=== PATIENT | male | born 1955 | race American Indian/Alaskan Native ===

== ENCOUNTER 2017-04-04 16:42 | Emergency (ER) | payer BC, OTHER ==
[2017-04-04 17:56] LABS: Hematocrit 37.2 % (35.5-45.6); Hemoglobin 11.8 gm/dl (11.8-15.2); Mean Corpuscular HGB Conc 32 % (32-34); Mean Corpuscular Volume 80 fl (84-94); Platelet Count 357 K/mm3 (140-440); Red Blood Count 4.67 M/mm3 (3.65-5.03); Red Cell Distribution Width 17.4 % (13.2-15.2)
[2017-04-04 18:01] LABS: Mean Corpuscular Hemoglobin 25 pg (28-32)
[2017-04-04 18:06] LABS: INR 1.53 (0.87-1.13)
[2017-04-04 18:07] LABS: Partial Thromboplastin Time 38.8 Sec. (24.2-36.6)
[2017-04-04 18:10] LABS: Anion Gap -2 mmol/L; BUN/Creatinine Ratio 16.36; Blood Urea Nitrogen 18 mg/dL (9-20); Calcium 9.6 mg/dL (8.4-10.2); Carbon Dioxide 24 mmol/L (22-30); Chloride 109.2 mmol/L (98-107); Glucose 139 mg/dL (75-100); Potassium 4.8 mmol/L (3.6-5.0); Sodium 126 mmol/L (137-145)
--- NOTE | 2017-04-04 20:58 | Emergency Department Report ---
ED Extremity Problem HPI - General Chief complaint: Extremity Injury, Lower Stated complaint: Bilat Leg Pain Time Seen by Provider: 04/04/17 20:52 Source: patient Mode of arrival: Wheelchair Limitations: No Limitations - History of Present Illness Initial comments: Patient reports bilateral lower extremity pain, worse on the right that started five days ago after eating several meals of fried foods. He attributes the pain to a gout flare-up which he takes Colcry, however symptoms continue to persist. MD Complaint: extremity pain, extremity swelling Onset/Timin -: days(s) Location: right, lower extremity, bilateral lower extremity History of Same: Yes -: Yes myalgia, No associated chest pain Radiation: distal Severity scale (0 -10): 10 Quality: aching, constant Consistency: constant Improves with: nothing Worsens with: weight bearing, walking Associated Symptoms: denies other symptoms. denies: chest pain, shortness of breath, fever, myalgias, arthralgias, rash - Related Data Previous Rx's Medication Instructions Recorded Last Taken Type Enoxaparin [Lovenox] 30 mg SQ Q12HR #4 syringe 04/04/17 Unknown Rx Enoxaparin [Lovenox] 80 mg SQ Q12HR #4 syringe 04/04/17 Unknown Rx Indomethacin 50 mg PO Q8H #15 capsule 04/04/17 Unknown Rx Allergies Allergy/AdvReac Type Severity Reaction Status Date / Time No Known Allergies Allergy Unverified 04/04/17 17:33 ED Review of Systems ROS: Stated complaint: Bilat Leg Pain Other details as noted in HPI Constitutional: denies: chills, fever, weakness Respiratory: denies: cough, orthopnea, shortness of breath, SOB with exertion, SOB at rest, stridor, wheezing Cardiovascular: denies: chest pain, palpitations, dyspnea on exertion, orthopnea , edema, syncope, paroxysmal nocturnal dyspnea Gastrointestinal: denies: abdominal pain, nausea, vomiting, diarrhea, constipation Genitourinary: denies: urgency, dysuria, frequency, hematuria Musculoskeletal: arthralgia (bilateral lower extremities, severe on the right lower extremity). denies: back pain, joint swelling, myalgia Skin: denies: rash, lesions Neurological: denies: headache, weakness, numbness, paresthesias, confusion, abnormal gait, vertigo Psychiatric: denies: anxiety, depression Hematological/Lymphatic: denies: easy bleeding, easy bruising, swollen glands ED Past Medical Hx - Past Medical History Hx Hypertension: Yes Additional medical history: gout,AFIB - Social History Smoking Status: Never Smoker Substance Use Type: None - Medications Home Medications: Home Medications Medication Instructions Recorded Confirmed Last Taken Type Enoxaparin [Lovenox] 30 mg SQ Q12HR #4 syringe 04/04/17 Unknown Rx Enoxaparin [Lovenox] 80 mg SQ Q12HR #4 syringe 04/04/17 Unknown Rx Indomethacin 50 mg PO Q8H #15 capsule 04/04/17 Unknown Rx ED Physical Exam - General Limitations: No Limitations General appearance: alert, in no apparent distress - Head Head exam: Present: atraumatic, normal inspection - Eye Eye exam: Present: normal appearance - ENT ENT exam: Present: normal exam, normal orophraynx, mucous membranes moist. Absent: mucous membranes dry - Neck Neck exam: Present: normal inspection, full ROM. Absent: tenderness, meningismus, lymphadenopathy, thyromegaly - Respiratory Respiratory exam: Present: normal lung sounds bilaterally. Absent: respiratory distress, wheezes, rales, rhonchi, stridor, chest wall tenderness, accessory muscle use, decreased breath sounds, prolonged expiratory - Cardiovascular Cardiovascular Exam: Present: tachycardia, normal heart sounds. Absent: normal rhythm, bradycardia, irregular rhythm, systolic murmur, diastolic murmur, rubs, gallop - GI/Abdominal GI/Abdominal exam: Present: soft, distended, normal bowel sounds. Absent: tenderness, guarding, rebound, rigid - Extremities Exam Extremities exam: Present: normal inspection, full ROM, normal capillary refill. Absent: tenderness - Expanded Lower Extremity Exam Left Hip exam: Present: normal inspection, full ROM, pelvic stability Lower Leg exam: Present: normal inspection, full ROM. Absent: tenderness, swelling, abrasion, laceration, ecchymosis, deformity, crepidus, dislocation, erythema, palpable cord, Dacia's sign Ankle exam: Present: normal inspection, full ROM Foot/Toe exam: Present: normal inspection, full ROM Neuro vascular tendon exam: Present: no vascular compromise. Absent: pulse deficit, abnormal cap refill, motor deficit, sensory deficit, tendon deficit, extremity cold to touch, pallor, abnormal 2-point discrimination, decreased fine /light touch, foot drop, peroneal nerve deficit, significant pain with passive ROM of distal joint Gait: Positive: antalgic (patient ambulates with a walker) Right Hip exam: Present: normal inspection, full ROM, pelvic stability Lower Leg exam: Present: normal inspection, full ROM, tenderness, swelling. Absent: abrasion, laceration, ecchymosis, deformity, crepidus, dislocation, erythema, palpable cord, Dacia's sign Ankle exam: Present: normal inspection, full ROM, tenderness. Absent: swelling , abrasion, laceration, ecchymosis, deformity, crepidus, dislocation, erythema, anterior draw sign Foot/Toe exam: Present: normal inspection, full ROM. Absent: tenderness Neuro vascular tendon exam: Present: no vascular compromise. Absent: pulse deficit, abnormal cap refill, motor deficit, sensory deficit, tendon deficit, extremity cold to touch, pallor, abnormal 2-point discrimination, decreased fine /light touch, foot drop, peroneal nerve deficit, significant pain with passive ROM of distal joint Gait: Positive: antalgic (ambulates with a walker) - Back Exam Back exam: Present: normal inspection, full ROM. Absent: tenderness - Neurological Exam Neurological exam: Present: alert, oriented X3, CN II-XII intact, normal gait ( ambulates with a walker), reflexes normal. Absent: motor sensory deficit - Psychiatric Psychiatric exam: Present: normal affect, normal mood. Absent: depressed, agitated - Skin Skin exam: Present: warm, dry, intact, normal color. Absent: rash ED Course Vital Signs 04/04/17 17:29 Temperature 98.3 F Pulse Rate 108 H Respiratory 18 Rate Blood Pressure 133/98 O2 Sat by Pulse 100 Oximetry - Reevaluation(s) Reevaluation #1: 04/04/17 21:15 pain medication, laboratory and radiology studies ordered Reevaluation #2: 04/04/17 22:36 Lovenox and EKG ordered Reevaluation #3: 04/04/17 23:03 Patient received a hard script for outpatient INR recheck in 2-3 days ED Medical Decision Making - Lab Data Result diagrams: 04/04/17 17:39 04/04/17 17:39 Lab Results 04/04/17 04/04/17 04/04/17 Range/Units 17:39 17:39 17:39 WBC 15.0 H (4.5-11.0) K/mm3 RBC 4.67 (3.65-5.03) M/mm3 Hgb 11.8 (11.8-15.2) gm/dl Hct 37.2 (35.5-45.6) % MCV 80 L (84-94) fl MCH 25 L (28-32) pg MCHC 32 (32-34) % RDW 17.4 H (13.2-15.2) % Plt Count 357 (140-440) K/mm3 PT 18.4 H (12.2-14.9) Sec. INR 1.53 H (0.87-1.13) APTT 38.8 H (24.2-36.6) Sec. Sodium 126 L (137-145) mmol/L Potassium 4.8 (3.6-5.0) mmol/L Chloride 109.2 H (98-107) mmol/L Carbon Dioxide 24 (22-30) mmol/L Anion Gap -2 mmol/L BUN 18 (9-20) mg/dL Creatinine 1.1 (0.8-1.5) mg/dL Estimated GFR > 60 ml/min BUN/Creatinine Ratio 16.36 % Glucose 139 H (75-100) mg/dL Calcium 9.6 (8.4-10.2) mg/dL Urine Color (Yellow) Urine Turbidity (Clear) Urine pH (5.0-7.0) Ur Specific [place] (1.003-1.030) Urine Protein (Negative) mg/dL Urine Glucose (UA) (Negative) mg/dL Urine Ketones (Negative) mg/dL Urine Blood (Negative) Urine Nitrite (Negative) Urine Bilirubin (Negative) Urine Urobilinogen (<2.0) mg/dL Ur Leukocyte Esterase (Negative) Urine WBC (Auto) (0.0-6.0) /HPF Urine RBC (Auto) (0.0-6.0) /HPF Urine Mucus /HPF 04/04/17 Range/Units 20:39 WBC (4.5-11.0) K/mm3 RBC (3.65-5.03) M/mm3 Hgb (11.8-15.2) gm/dl Hct (35.5-45.6) % MCV (84-94) fl MCH (28-32) pg MCHC (32-34) % RDW (13.2-15.2) % Plt Count (140-440) K/mm3 PT (12.2-14.9) Sec. INR (0.87-1.13) APTT (24.2-36.6) Sec. Sodium (137-145) mmol/L Potassium (3.6-5.0) mmol/L Chloride (98-107) mmol/L Carbon Dioxide (22-30) mmol/L Anion Gap mmol/L BUN (9-20) mg/dL Creatinine (0.8-1.5) mg/dL Estimated GFR ml/min BUN/Creatinine Ratio % Glucose (75-100) mg/dL Calcium (8.4-10.2) mg/dL Urine Color Yellow (Yellow) Urine Turbidity Clear (Clear) Urine pH 6.0 (5.0-7.0) Ur Specific [place] 1.013 (1.003-1.030) Urine Protein <15 mg/dl (Negative) mg/dL Urine Glucose (UA) Neg (Negative) mg/dL Urine Ketones Tr (Negative) mg/dL Urine Blood Neg (Negative) Urine Nitrite Neg (Negative) Urine Bilirubin Neg (Negative) Urine Urobilinogen < 2.0 (<2.0) mg/dL Ur Leukocyte Esterase Neg (Negative) Urine WBC (Auto) 2.0 (0.0-6.0) /HPF Urine RBC (Auto) 2.0 (0.0-6.0) /HPF Urine Mucus Few /HPF - Differential Diagnosis Right Leg Gout Pain, DVT, A-Fib Critical care attestation.: If time is entered above; I have spent that time in minutes in the direct care of this critically ill patient, excluding procedure time. ED Disposition Clinical Impression: Gout attack Qualifiers: Gout site: unspecified site Gout etiology: unspecified cause Qualified Code(s) : M10.9 - Gout, unspecified DVT (deep venous thrombosis) Qualifiers: DVT location: lower extremity Laterality: right Chronicity: acute Atrial fibrillation Qualifiers: Atrial fibrillation type: chronic Qualified Code(s): I48.2 - Chronic atrial fibrillation Disposition: DISCHARGED TO HOME OR SELFCARE Is pt being admited?: No Does the pt Need Aspirin: No Condition: Stable Instructions: Acute Gouty Arthritis (ED), Deep Venous Thrombosis (ED), Atrial Fibrillation (ED) Additional Instructions: Take medication as directed. Follow up with outpatient tomorrow for venous doppler study of right leg. Follow up in the lab in 2-3 days for INR recheck. Keep and maintain all appointments Prescriptions: Enoxaparin [Lovenox] 30 mg SQ Q12HR #4 syringe Enoxaparin [Lovenox] 80 mg SQ Q12HR #4 syringe Indomethacin 50 mg PO Q8H #15 capsule Referrals: PRIMARY CARE, [Primary Care Provider] - 3-5 Days KIMMY EDYD MD [Staff Physician] - 3-5 Days CLARA STOVALL MD [Staff Physician] - 3-5 Days Time of Disposition: 22:50
[2017-04-04 21:02] LABS: Bilirubin,Urine NEG (Negative); Blood,Urine NEG (Negative); Ketones,Urine TR mg/dL (Negative); Leukocyte Esterase,Urine NEG (Negative); Mucus,Urine FEW /HPF; Nitrite,Urine NEG (Negative); Protein,Urine <15 mg/dL mg/dL (Negative); Urobilinogen,Urine < 2.0 mg/dL (<2.0)
[2017-04-04] MEDS ORDERED: TORADOL IM ONE (21:04)
[2017-04-04] MEDS ORDERED: LOVENOX SUB-Q ONE ×2 (22:34→22:49)
[2017-04-04 22:44] VITALS: BP 128/87
== END 2017-04-04 23:38 | disposition home or self-care (01) ==
LOC: ED 16:42
DX: M10.9 Gout, unspecified (principal); I48.2 Chronic atrial fibrillation; I82.401 Acute embolism and thrombosis of unspecified deep veins of right lower extremity; I10 Essential (primary) hypertension; I48.91 Unspecified atrial fibrillation
CPT/HCPCS: 36415; 80048; 81001; 85027; 85610; 85730; 93005; 93010; 96372; 99283; J1650; J1885

== ENCOUNTER 2017-04-05 08:54 | Outpatient (CLI) | payer OTHER, BC ==
--- NOTE | 2017-04-07 07:36 | Vascular Lab Report ---
Right Lower Extremity Venous Duplex Study: Reason for Exam: Pain of the right lower extremity. Comments on the Right: All veins visualized are freely compressible without evidence of internal echogenicity. Flow is spontaneous and phasic throughout. No evidence of acute or chronic thrombus is seen in any of the vessels visualized. Soft tissue density in the right leg is consistent with knee effusion. Comments on the Left: A limited duplex study was done of the proximal veins of the left lower extremity. All veins visualized are freely compressible without evidence of internal echogenicity. Flow is spontaneous and phasic throughout. No evidence of acute or chronic thrombus is seen in any of the vessels visualized. Impression: No evidence of acute or chronic deep venous thrombosis in the right lower extremity.
== END 2017-04-05 08:55 | disposition home or self-care (01) ==
LOC: VAS 08:54
PROVIDERS: ATTEND Nurse Practitioner Family
DX: M79.604 Pain in right leg (principal)

== ENCOUNTER 2021-04-16 12:59 | Emergency (ER) | payer BC, MEDICARE, OTHER ==
[2021-04-16 13:37] VITALS: BP 164/92
--- NOTE | 2021-04-16 13:57 | Emergency Department Report ---
ED Male HPI - General Chief complaint: Urogenital-Male Stated complaint: CANT USE THE RESTROOM Time Seen by Provider: 04/16/21 13:51 Source: patient Mode of arrival: Wheelchair Limitations: No Limitations - History of Present Illness Initial comments: Patient is a 65-year-old male who presents emergency room with complaints of urinary retention since 7:00 last night. Patient states that this has occurred once in the past and he had to have a catheter placed. He states that his urologist is Dr. Hernández. He states he has a history of BPH. He states he has pressure in his lower abdomen secondary to not being able to urinate. He denies any back pain, fever, nausea, vomiting, diarrhea, any other symptoms. Past medical history of gout, hypertension, A. fib. No allergies to medications. - Related Data Previous Rx's Medication Instructions Recorded Last Taken Type Enoxaparin [Lovenox] 30 mg SQ Q12HR #4 syringe 04/04/17 Unknown Rx Enoxaparin [Lovenox] 80 mg SQ Q12HR #4 syringe 04/04/17 Unknown Rx Indomethacin 50 mg PO Q8H #15 capsule 04/04/17 Unknown Rx Allergies Allergy/AdvReac Type Severity Reaction Status Date / Time No Known Allergies Allergy Verified 04/16/21 13:31 ED Review of Systems ROS: Stated complaint: CANT USE THE RESTROOM Other details as noted in HPI Comment: All other systems reviewed and negative ED Past Medical Hx - Past Medical History Hx Hypertension: Yes Additional medical history: gout,AFIB/ PROSTRATE - Surgical History Past Surgical History?: No - Social History Smoking Status: Never Smoker Substance Use Type: None - Medications Home Medications: Home Medications Medication Instructions Recorded Confirmed Last Taken Type Enoxaparin [Lovenox] 30 mg SQ Q12HR #4 syringe 04/04/17 Unknown Rx Enoxaparin [Lovenox] 80 mg SQ Q12HR #4 syringe 04/04/17 Unknown Rx Indomethacin 50 mg PO Q8H #15 capsule 04/04/17 Unknown Rx ED Physical Exam - General Limitations: No Limitations General appearance: alert, in no apparent distress - Head Head exam: Present: atraumatic, normocephalic - Eye Eye exam: Present: normal appearance - ENT ENT exam: Present: mucous membranes moist - Respiratory Respiratory exam: Present: normal lung sounds bilaterally. Absent: respiratory distress, wheezes, rales, rhonchi, stridor, chest wall tenderness, accessory muscle use, decreased breath sounds, prolonged expiratory - Cardiovascular Cardiovascular Exam: Present: regular rate, normal rhythm, normal heart sounds. Absent: systolic murmur, diastolic murmur, rubs, gallop - GI/Abdominal GI/Abdominal exam: Present: soft, normal bowel sounds. Absent: distended, tenderness, guarding, rebound, rigid - Back Exam Back exam: Absent: CVA tenderness (R), CVA tenderness (L) - Neurological Exam Neurological exam: Present: alert, oriented X3 - Psychiatric Psychiatric exam: Present: normal affect, normal mood - Skin Skin exam: Present: warm, dry, intact ED Course Vital Signs 04/16/21 13:36 Temperature 98.9 F Pulse Rate 79 Respiratory 20 Rate Blood Pressure 164/92 O2 Sat by Pulse 100 Oximetry ED Medical Decision Making - Lab Data Result diagrams: 04/16/21 14:06 04/16/21 14:06 Labs 04/16/21 04/16/21 04/16/21 14:06 14:06 Unknown WBC 11.9 H RBC 5.48 H Hgb 14.6 Hct 45.2 MCV 83 L MCH 27 L MCHC 32 RDW 18.2 H Plt Count 179 Add Manual Diff Complete Total Counted 100 Seg Neutrophils % Camp Counselor Seg Neuts % (Manual) 89.0 H Lymphocytes % (Manual) 6.0 L Monocytes % (Manual) 4.0 Basophils % (Manual) 1.0 Nucleated RBC % Not Reportable Seg Neutrophils # Man 10.6 H Band Neutrophils # 0.0 Lymphocytes # (Manual) 0.7 L Abs React Lymphs (Man) 0.0 Monocytes # (Manual) 0.5 Eosinophils # (Manual) 0.0 Basophils # (Manual) 0.1 Metamyelocytes # 0.0 Myelocytes # 0.0 Promyelocytes # 0.0 Blast Cells # 0.0 WBC Morphology Not Reportable Hypersegmented Neuts Not Reportable Hyposegmented Neuts Not Reportable Hypogranular Neuts Not Reportable Smudge Cells Not Reportable Toxic Granulation Not Reportable Toxic Vacuolation Not Reportable Dohle Bodies Not Reportable Pelger-Huet Anomaly Not Reportable Alicia Rods Not Reportable Platelet Estimate Consistent w auto Clumped Platelets Not Reportable Plt Clumps, EDTA Not Reportable Large Platelets Not Reportable Giant Platelets Not Reportable Platelet Satelliting Not Reportable Plt Morphology Comment Not Reportable RBC Morphology Normal Dimorphic RBCs Not Reportable Polychromasia Not Reportable Hypochromasia Not Reportable Poikilocytosis Not Reportable Anisocytosis Not Reportable Microcytosis Not Reportable Macrocytosis Not Reportable Spherocytes Not Reportable Pappenheimer Bodies Not Reportable Sickle Cells Not Reportable Target Cells Not Reportable Tear Drop Cells Not Reportable Ovalocytes Not Reportable Helmet Cells Not Reportable [place] Bodies Not Reportable [place] Rings Not Reportable [place] Cells Not Reportable Bite Cells Not Reportable Crenated Cell Not Reportable Elliptocytes Not Reportable Acanthocytes (Spur) Not Reportable Rouleaux Not Reportable Hemoglobin C Crystals Not Reportable Schistocytes Not Reportable Malaria parasites Not Reportable Narendra Bodies Not Reportable Hem Pathologist Commnt No Sodium 138 Potassium 4.0 Chloride 102.2 Carbon Dioxide 19 L Anion Gap 21 BUN 11 Creatinine 1.1 Estimated GFR > 60 BUN/Creatinine Ratio 10 Glucose 154 H Calcium 9.3 Total Bilirubin 0.30 AST 20 ALT 9 Alkaline Phosphatase 98 Total Protein 7.2 Albumin 4.5 Albumin/Globulin Ratio 1.7 Urine Color Yellow Urine Turbidity Clear Urine pH 5.0 Ur Specific [place] 1.011 Urine Protein <15 mg/dl Urine Glucose (UA) Neg Urine Ketones Neg Urine Blood Lg Urine Nitrite Neg Urine Bilirubin Neg Urine Urobilinogen < 2.0 Ur Leukocyte Esterase Neg Urine WBC (Auto) < 1.0 Urine RBC (Auto) > 182.0 - Medical Decision Making Patient is a 65-year-old male who presents emergency room with complaints of urinary retention since 7:00 last night. Patient states that this has occurred once in the past and he had to have a catheter placed. He states that his urologist is Dr. Hernández. He states he has a history of BPH. He states he has pressure in his lower abdomen secondary to not being able to urinate. He denies any back pain, fever, nausea, vomiting, diarrhea, any other symptoms. Past medical history of gout, hypertension, A. fib. No allergies to medications. Vitals are stable. No abdominal tenderness on exam, no CVA tenderness. [place] placed by nursing staff with good output, patient states that he feels much relieved after receiving [place] catheter, leg bag was placed by nurse. Labs are stable. UA without evidence of UTI, there is hematuria, could be due to catheterization, will outpatient follow-up. Patient will be given urology follow-up, discussed the importance of follow-up. Advised patient Please follow-up with your urologist in the next couple days. Return to emergency room for new or worsening symptoms. Advised patient that if he was unable to follow-up with a urologist in the next few days that he may return to emergency room for potential removal. Critical care attestation.: If time is entered above; I have spent that time in minutes in the direct care of this critically ill patient, excluding procedure time. ED Disposition Clinical Impression: Urinary retention Disposition: DC-01 TO HOME OR SELFCARE Is pt being admited?: No Does the pt Need Aspirin: No Condition: Stable Instructions: Acute Urinary Retention, Male Additional Instructions: Please follow-up with your urologist in the next couple days. Return to emerg ency room for new or worsening symptoms. Referrals: LANI HERNÁNDEZ MD [Staff Physician] - 2-3 Days Time of Disposition: 15:36 Print Language: SYRI[place]
[2021-04-16 14:24] LABS: Hematocrit 45.2 % (35.5-45.6); Hemoglobin 14.6 gm/dl (11.8-15.2); Mean Corpuscular HGB Conc 32 % (32-34); Mean Corpuscular Volume 83 fl (84-94); Red Blood Count 5.48 M/mm3 (3.65-5.03); Red Cell Distribution Width 18.2 % (13.2-15.2)
[2021-04-16 14:49] LABS: Platelet Count 179 K/mm3 (140-440)
[2021-04-16 14:59] LABS: Alanine Aminotransferase 9 units/L (7-56); Albumin 4.5 g/dL (3.9-5); BUN/Creatinine Ratio 10; Blood Urea Nitrogen 11 mg/dL (9-20); Calcium 9.3 mg/dL (8.4-10.2); Hemolysis Index 2
[2021-04-16 15:32] LABS: Bilirubin,Urine NEG (Negative); Blood,Urine LG (Negative); Color,Urine Yellow (Yellow); Protein,Urine <15 mg/dL mg/dL (Negative); Urobilinogen,Urine < 2.0 mg/dL (<2.0); WBC,Urine < 1.0 /HPF (0.0-6.0)
[2021-04-16 15:34] LABS: RBC,Urine > 182.0 /HPF (0.0-6.0)
[2021-04-16 15:53] LABS: Platelet Estimate Consistent w Auto; RBC Morphology Normal; Total Cells Counted 100
== END 2021-04-16 15:57 | disposition home or self-care (01) ==
LOC: ED 12:59
DX: R33.9 Retention of urine, unspecified (principal); I10 Essential (primary) hypertension; Z79.899 Other long term (current) drug therapy
CPT/HCPCS: 36415; 51702; 80053; 81001; 85007; 85025; 99283